=== PATIENT | female | born 1945 | race Caucasian/White ===

== ENCOUNTER 2018-09-19 23:36 | Inpatient (IN) | payer MEDICARE, MEDICAID ==
[2018-09-20 00:44] LABS: Troponin I 0.013 ng/mL (< 0.028)
[2018-09-20 01:31] VITALS: BMI 27.3
[2018-09-20] MEDS ORDERED: Ondansetron PF 4 MG/2 ML Vial IVP PRN ×2 (01:31→01:35)
[2018-09-20] MEDS ORDERED: Sodium Chloride 0.9% 1,000 ML IV SCH (01:31)
[2018-09-20] MEDS ORDERED: Ondansetron ODT 4 MG TAB SL PRN (01:31)
[2018-09-20] MEDS ORDERED: Dextrose 5% in Water 1,000 ML IV PRN (01:35)
[2018-09-20] MEDS ORDERED: Acetaminophen 325 MG TAB PO PRN (01:35)
[2018-09-20] MEDS ORDERED: Ondansetron ODT 4 MG TAB PO PRN (01:35)
[2018-09-20] MEDS ORDERED: Dextrose 50% Abboject 50 ML SYRINGE SLOW IVP PRN (01:35)
[2018-09-20] MEDS ORDERED: Diltiazem 125 MG in Sodium Chloride 0.9% 100 ML IVPB SCH (01:35)
[2018-09-20] MEDS ORDERED: HumaLOG 300 UNITS/3 ML VIAL SC PRN ×2 (01:35)
[2018-09-20] MEDS ORDERED: hydrALAZINE 20 MG/ML VIAL SLOW IVP PRN (01:35)
[2018-09-20 02:18] LABS: Thyroid Stimulating Hormone 4.3659 uIU/mL (0.35-4.94)
[2018-09-20 03:32] LABS: #Basophils 0.1 thou/uL (0.0-0.2); #Eosinphils 0.4 thou/uL (0.0-0.7); #Lymphocytes 3.6 thou/uL (1.20-3.40); #Monocytes 0.6 thou/uL (0.11-0.59); %Eosinophils 3.4 % (0.0-10.0); %Monocytes 5.3 % (0.0-10.0); %Neutrophils 56.4 % (42.0-75.0); Hemoglobin 12.1 g/dL (12.0-16.0); Mean Corpuscular HGB CONC 32.8 g/dL (32.0-36.0); Mean Corpuscular Hemoglobin 31.9 pg (27.0-31.0); Mean Corpuscular Volume 97.4 fL (78.0-98.0); Mean Platelet Volume 7.2 fL (7.4-10.4); Platelet Count 338 thou/uL (130-400); RBC Distribution Width 12.1 % (11.5-14.5); Red Blood Cell (RBC) Count 3.79 mill/uL (4.20-5.40); White Blood Cell (WBC) Count 10.6 thou/uL (4.8-10.8)
[2018-09-20 03:50] LABS: Anion Gap 17 mmol/L (10-20); BUN (Urea Nitrogen) 21 mg/dL (9.8-20.1); Calc. Creatinine Clearance 48 mL/min (70-130); Calcium 9.5 mg/dL (7.8-10.44); Carbon Dioxide 21 mmol/L (23-31); Chloride 107 mmol/L (98-107); Estimated GFR-MDRD 46; Glucose 217 mg/dL (83-110); Potassium 3.9 mmol/L (3.5-5.1); Sodium 141 mmol/L (136-145)
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
[2018-09-20 04:34] LABS: Free T4 (Free Thyroxine) 0.97 ng/dL (0.70-1.48)
[2018-09-20] MEDS ORDERED: Enoxaparin Sodium 80 MG/0.8 ML SYRINGE SC SCH (09:00)
[2018-09-20] MEDS: Famotidine 20 MG TAB PO SCH ×2 (09:18→20:50)
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
[2018-09-20 19:59] LABS: Platelet Count 392 thou/uL (130-400)
[2018-09-20] MEDS: Apixaban 5 MG TAB PO SCH (20:50)
[2018-09-20] MEDS: Amiodarone 200 MG TAB PO SCH (20:50)
[2018-09-20] MEDS: Diltiazem HCl SR 60 mg Capsule PO SCH (20:50)
[2018-09-21] MEDS: Levothyroxine Sodium 125 MCG TAB PO SCH (06:04)
[2018-09-21] MEDS: Apixaban 5 MG TAB PO SCH ×2 (08:49→20:54)
[2018-09-21] MEDS: Diltiazem HCl SR 60 mg Capsule PO SCH ×2 (08:49→20:54)
[2018-09-21] MEDS: Famotidine 20 MG TAB PO SCH ×2 (08:50→20:54)
[2018-09-21] MEDS: Amiodarone 200 MG TAB PO SCH ×2 (08:50→20:54)
[2018-09-21] MEDS: Carvedilol 3.125 MG TAB PO SCH ×2 (08:50→16:07)
[2018-09-21] MEDS: Lisinopril 5 MG TAB PO SCH (08:50)
[2018-09-21] MEDS ORDERED: Lisinopril 10 MG TAB PO SCH (09:00)
--- NOTE | 2018-09-21 14:50 | PRG ---
DATE OF SERVICE: 09/21/2018 SUBJECTIVE: The patient is seen and examined at the bedside. She complains about dizziness when she gets up and starts moving around. OBJECTIVE: VITAL SIGNS: Blood pressure is 117/61, pulse is 78, respiratory rate is 17, temperature is 97.7, and O2 saturation is 95% on room air. GENERAL: She is not in any distress during my visit. HEENT: On examination, her head is atraumatic and normocephalic. Eyes are PERRLA. Sclerae are nonicteric. Oral mucosa is moist. NECK: Supple. LUNGS: Clear. HEART: S1 and S2, irregularly irregular. No S3. No S4. ABDOMEN: Soft, nontender, slightly obese. EXTREMITIES: No clubbing, cyanosis, or edema. NEUROLOGIC: She is alert and oriented x4. There are no any sensory or motor deficits present. Cranial nerves are intact. LABORATORY DATA: Glycemia is ranging from 107 to 183. Echocardiogram showed LVEF of 40% to 45%, atrial fibrillation during study, mildly dilated left atrium, mild mitral regurgitation, aortic valve sclerosis but opens well, and mild tricuspid regurgitation. IMPRESSION: 1. Atrial fibrillation with rapid ventricular response, rate controlled at this point, the patient was on Cardizem drip. She is switched to amiodarone. She is started on Eliquis 5 mg twice a day. She is continued on her lisinopril and it is controlled. She is scheduled for outpatient DEBI and cardioversion on Sunday. 2. Dizziness, unclear etiology. We will do orthostatic vitals. 3. Diabetes mellitus, type 2. 4. Asthma, on p.r.n. DuKtbs. 5. Hypothyroidism. PLAN: As I mentioned above, she is going to continue on her amiodarone along with Eliquis and Coreg. We will continue sliding scale coverage with moderate protocol and Accu-Cheks before meals and at bedtime. We will continue her lisinopril and levothyroxine, and she should be able to go home tomorrow. Job ID: [id number]
[2018-09-22] MEDS: Levothyroxine Sodium 125 MCG TAB PO SCH (05:49)
[2018-09-22] MEDS: Carvedilol 3.125 MG TAB PO SCH ×2 (08:01→16:22)
[2018-09-22] MEDS: Famotidine 20 MG TAB PO SCH ×2 (09:22→20:48)
[2018-09-22] MEDS: Apixaban 5 MG TAB PO SCH ×2 (09:23→20:47)
[2018-09-22] MEDS: Lisinopril 5 MG TAB PO SCH (09:23)
[2018-09-22] MEDS: Amiodarone 200 MG TAB PO SCH ×2 (09:23→20:47)
--- NOTE | 2018-09-22 13:23 | PRG ---
DATE OF SERVICE: 09/22/2018 SUBJECTIVE: The patient is seen and examined at the bedside. She had quite significant amount of dizziness this morning and doctor of naturopathic medicine saw her and also she had a pause on her monitoring and some I believe SVT, nonsustained, short and he decided to keep additional day and stop her . OBJECTIVE: VITAL SIGNS: Blood pressure is 113/70, pulse is 62, temperature is 97.9, respiratory rate is 17, and O2 saturation is 97% on room air. HEENT: Head is atraumatic and normocephalic. Eyes are PERRLA. Sclerae are nonicteric. Oral mucosa is moist. NECK: Supple. LUNGS: Clear. HEART: S1 and S2, normal. No S3. No S4. ABDOMEN: Soft and nontender. EXTREMITIES: No clubbing, cyanosis, or edema. NEUROLOGIC: She is alert and oriented x4. There is no any sensory or motor deficits present. There is no nystagmus. LABORATORY DATA: Glycemia is ranging from 104 to 183. Echocardiogram showed LVEF estimated at 40% to 45%, and atrial fibrillation during study. Mildly dilated left atrium, mild mitral regurgitation, aortic valve sclerosis, but opening well, and mild tricuspid regurgitation. IMPRESSION: 1. Atrial fibrillation with RVR. The patient is back to normal sinus rhythm. She converted this morning. She is on amiodarone at this point, Cardizem was stopped. She is started on Eliquis 5 mg twice a day and her rate is controlled. Most likely, she will need followup appointment with doctor of naturopathic medicine next Sunday because she converted to sinus, but we are going to keep her additional day since she had some dizziness and orthostatic vitals did not show any abnormalities. 2. Diabetes mellitus type 2. 3. Asthma, on p.r.n. DuoNeb. 4. Hypothyroidism. PLAN: Plan is to continue her current regimen, hold the discharge, and start meclizine. She probably will go home tomorrow morning. Job ID: [id number]
[2018-09-22] MEDS ORDERED: Atorvastatin Calcium 20 MG TAB PO SCH (21:00)
[2018-09-23 05:28] LABS: Platelet Count 372 thou/uL (130-400)
[2018-09-23] MEDS: Levothyroxine Sodium 125 MCG TAB PO SCH (05:59)
[2018-09-23] MEDS: Carvedilol 3.125 MG TAB PO SCH (07:08)
[2018-09-23] MEDS: Lisinopril 5 MG TAB PO SCH (08:45)
[2018-09-23] MEDS: Apixaban 5 MG TAB PO SCH (08:45)
[2018-09-23] MEDS: Amiodarone 200 MG TAB PO SCH (08:45)
[2018-09-23] MEDS: Famotidine 20 MG TAB PO SCH (08:45)
[2018-09-23 12:40] VITALS: BP 127/74; TEMP 97.9
== END 2018-09-23 15:45 | disposition home or self-care (01) | DRG 310 ==
LOC: ERS 23:36 → 2NO 09-20 00:05
PROVIDERS: ADMIT Internal Medicine; ATTEND Internal Medicine
DX: I48.91 Unspecified atrial fibrillation (principal); I10 Essential (primary) hypertension; E11.9 Type 2 diabetes mellitus without complications; J45.909 Unspecified asthma, uncomplicated; E03.9 Hypothyroidism, unspecified; Z96.652 Presence of left artificial knee joint; Z93.0 Tracheostomy status; Z88.5 Allergy status to narcotic agent; Z88.2 Allergy status to sulfonamides; Z91.041 Radiographic dye allergy status
CPT/HCPCS: 36415; 36416; 80048; 82565; 84439; 84443; 84484; 85014; 85018; 85025; 85049; 93005; 93306; 96365; J1650; J2405; J7050

== ENCOUNTER 2020-06-10 06:28 | Inpatient (IN) | payer MEDICARE, MEDICAID ==
[2020-06-10 07:04] LABS: #Basophils 0.1 thou/uL (0.0-0.2); #Eosinphils 0.3 thou/uL (0.0-0.7); #Lymphocytes 2.1 thou/uL (1.20-3.40); #Monocytes 0.4 thou/uL (0.11-0.59); #Neutrophils 5.4 thou/uL (1.40-6.50); %Basophils 1.2 % (0.0-1.0); %Eosinophils 3.8 % (0.0-10.0); %Lymphocytes 24.7 % (21.0-51.0); %Monocytes 5.2 % (0.0-10.0); %Neutrophils 65.2 % (42.0-75.0); Hemoglobin 13.9 g/dL (12.0-16.0); Mean Corpuscular HGB CONC 33.7 g/dL (32.0-36.0); Mean Corpuscular Hemoglobin 32.2 pg (27.0-31.0); Mean Corpuscular Volume 95.6 fL (78.0-98.0); Mean Platelet Volume 7.4 fL (7.4-10.4); Platelet Count 279 thou/uL (130-400); RBC Distribution Width 12.3 % (11.5-14.5); Red Blood Cell (RBC) Count 4.32 mill/uL (4.20-5.40); White Blood Cell (WBC) Count 8.3 thou/uL (4.8-10.8)
[2020-06-10] MEDS ORDERED: Albuterol 200 PUFF (6.7GM INHALER) ONE (07:22)
[2020-06-10 07:23] LABS: ALT (SGPT) 15 U/L (8-55); AST (SGOT) 21 U/L (5-34); Albumin 4.4 g/dL (3.4-4.8); Alkaline Phosphatase 65 U/L (40-110); Anion Gap 17 mmol/L (10-20); BUN (Urea Nitrogen) 19 mg/dL (9.8-20.1); Bilirubin, Total 0.4 mg/dL (0.2-1.2); Calc. Creatinine Clearance 0 mL/min (70-130); Calcium 10.2 mg/dL (7.8-10.44); Carbon Dioxide 24 mmol/L (23-31); Chloride 106 mmol/L (98-107); Globulin 3.1 g/dL (2.4-3.5); Glucose 155 mg/dL (83-110); Potassium 3.9 mmol/L (3.5-5.1); Protein, Total 7.5 g/dL (6.0-8.3); Sodium 143 mmol/L (136-145)
[2020-06-10] MEDS ORDERED: Nitroglycerin 2% Ointment 1 INCH/1 GM Packet ONE (07:38)
[2020-06-10] MEDS ORDERED: Furosemide 40 MG/4 ML VIAL ONE (07:39)
[2020-06-10] MEDS ORDERED: Metoprolol Tartrate 5 MG/5 ML VIAL ONE (07:39)
[2020-06-10 07:44] LABS: CKMB 2.2 ng/mL (0-6.6)
--- NOTE | 2020-06-10 08:10 | RAD ---
Chest AP view INDICATION: Chest pain COMPARISON: Prior exam dated 06/10/2020 2:34 AM FINDINGS: Lungs: The lungs are clear Cardiac silhouette: The cardiomediastinal silhouette appears within normal limits. Pulmonary vasculature: Normal Pleural spaces: No pleural effusion or pneumothorax is demonstrated. Upper abdomen: No abnormality seen. Osseous structures: No acute osseous abnormality. Additional findings: None. IMPRESSION: No acute cardiopulmonary abnormality.
--- NOTE | 2020-06-10 08:29 | PDOC.HHP ---
Hospitalist HPI - History of Present Illness Shortness of breath History of Present Illness: Ms. Ball is a 74-year-old female with a past medical history of type 2 diabetes mellitus, hypertension, asthma, GERD, hypothyroidism, CKD, CHF with ejection fraction of 40 to 45%, atrial fibrillation on Eliquis (but noncompliant) who presented to outside hospital for an acute asthma attack. Patient reports that around 6 PM yesterday she noticed that her asthma was acting up and she gave herself an albuterol nebulizer treatment. This however only minimally improved her symptoms and she felt some chest tightness and pressure which prompted her to present to the emergency room. Patient reports that by the time she arrived to the emergency room her breathing had much improved and she no longer felt this chest tightness or pressure. Patient reports that she has a history of significant asthma in the past causing ICU admissions and intubation. She also reports noncompliance with many of her medications and once they have run out she has not refilled them. She is currently not taking any of her thyroid medicine any of her diabetes medicines or any of her medications for A. fib including her formally prescribed Cardizem or Eliquis. She denies any changes in vision, numbness, weakness. She denies any known Covid contacts. At outside hospital patient was found to be in A. fib with RVR with a rate in the 130s. She received Cardizem and is now in good rate control. She is not in any respiratory distress at outside hospital. In the emergency room here initial vital signs 160/102, 96, 18, 97.8, 96% on room air. EKG showed atrial fibrillation with controlled rate. Initial troponin 0 0.043, BNP 209.6. BUN/CR 19/1.12. H/H 13.9/41.3. WBC 8.3 sodium 143, potassium 3.9 glucose 155. Nacho dubon received albuterol nebulizer as well as nitro paste. Patient admitted to hospitalist service for further monitoring and evaluation. Hospitalist ROS - Review of Systems Constitutional: denies: fever, chills, sweats, weakness, malaise, other ENT: denies: ear pain, ear discharge, nose pain, nose discharge, nose congestion, mouth pain, mouth swelling, throat pain, throat swelling, other Respiratory: reports: shortness of breath, wheezing. denies: cough, dry, hemoptysis, SOB with excertion, pleuritic pain, sputum, other Cardiovascular: reports: chest pain. denies: palpitations, orthopnea, paroxysmal noc. dyspnea, edema, light headedness, other Gastrointestinal: denies: nausea, vomiting, abdominal pain, diarrhea, constipa tion, melena, hematochezia, other Genitourinary: denies: dysuria, frequency, incontinence, hematuria, retention, other Musculoskeletal: denies: neck pain, shoulder pain, arm pain, back pain, hand pain, leg pain, foot pain, other Skin: denies: rash, lesions, darwin, bruising, other Neurological: denies: weakness, numbness, incoordination, change in speech, confusion, seizures, other - Medication Medications: Home medications include Albuterol inhaler Prednisone Singulair Amlodipine Medications previously prescribed, but patient reports noncompliance with include Humalog Levothyroxine Lisinopril Metformin Eliquis Patient reports allergy to codeine, iodine, sulfa antibiotics. Hospitalist History - Past Medical History Other Medical History: Past medical history includes Atrial fibrillation on Eliquis, but noncompliant Type 2 diabetes mellitus Hypertension Asthma GERD Hypothyroidism CKD with baseline creatinine 1.2 CHF with ejection fraction of 40 to 45% on echocardiogram in 2019 - Past Surgical History Other Surgical History: Past surgical history includes Left knee replacement Pain in right heel - Family History Other Family History: Patient denies family history of heart disease - Social History Smoking Status: Never smoker Alcohol: reports: None Drugs: reports: none Living Situation: With Family Activity level: independent ambulation Other Social History: Patient cares for her elderly 94-year-old mother with dementia by herself, and reports great stress and anxiety around this. - Exam General Appearance: NAD, awake alert Eye: PERRL, anicteric sclera ENT: normocephalic atraumatic, no oropharyngeal lesions, moist mucosa Neck: supple, symmetric, no JVD, no thyromegaly, no lymphadenopathy, no carotid bruit Heart: normal peripheral pulses, irregular Heart - other findings: Irregularly irregular Respiratory: no rales, no ronchi, normal chest expansion, no tachypnea Respiratory - other findings: Faint wheezes Gastrointestinal: soft, non-tender, non-distended, normal bowel sounds, no palpable masses, no hepatomegaly, no splenomegaly, no bruit Extremities: no cyanosis, no clubbing, no edema Skin: normal turgor, no lesions, no rashes Neurological: cranial nerve grossly intact, normal sensation to touch, no weakness, no focal deficits, no new deficit Musculoskeletal: normal tone, normal strength, no muscle wasting Psychiatric: normal affect, normal behavior, A&O x 3 Hospitalist Results - Labs Result Diagrams: 06/12/20 04:13 06/12/20 04:13 Lab results: WBC 8.3 thou/uL (4.8-10.8) 06/10/20 06:52 Hgb 13.9 g/dL (12.0-16.0) 06/10/20 06:52 Hct 41.3 % (36.0-47.0) 06/10/20 06:52 MCV 95.6 fL (78.0-98.0) 06/10/20 06:52 Plt Count 279 thou/uL (130-400) 06/10/20 06:52 Neutrophils % 65.2 % (42.0-75.0) 06/10/20 06:52 Sodium 143 mmol/L (136-145) 06/10/20 06:52 Potassium 3.9 mmol/L (3.5-5.1) 06/10/20 06:52 Chloride 106 mmol/L (98-107) 06/10/20 06:52 Carbon Dioxide 24 mmol/L (23-31) 06/10/20 06:52 BUN 19 mg/dL (9.8-20.1) 06/10/20 06:52 Creatinine 1.12 mg/dL (0.6-1.1) H 06/10/20 06:52 Glucose 155 mg/dL (83-110) H 06/10/20 06:52 Calcium 10.2 mg/dL (7.8-10.44) 06/10/20 06:52 Total Bilirubin 0.4 mg/dL (0.2-1.2) 06/10/20 06:52 AST 21 U/L (5-34) 06/10/20 06:52 ALT 15 U/L (8-55) 06/10/20 06:52 Alkaline Phosphatase 65 U/L (40-110) 06/10/20 06:52 CK-MB (CK-2) 2.2 ng/mL (0-6.6) 06/10/20 06:52 Troponin I 0.043 ng/mL (< 0.028) H 06/10/20 06:52 B-Natriuretic Peptide 209.6 pg/mL (0-100) H 06/10/20 06:52 Serum Total Protein 7.5 g/dL (6.0-8.3) 06/10/20 06:52 Albumin 4.4 g/dL (3.4-4.8) 06/10/20 06:52 Hospitalist H&P A/P - Plan Plan: 74-year-old female with past medical history of asthma, atrial fibrillation, hypothyroidism, hypertension, type 2 diabetes mellitus presents with mild asthma exacerbation found to be in atrial fibrillation with RVR. Asthma exacerbation Patient initially presented to outside hospital with mild asthma exacerbation which was not relieved by home DuoNeb inhalers. Patient endorsed persistent chest tightness which improved after additional albuterol treatments. Patient currently maintaining O2 saturation 95% on room air and is in no respiratory distress. Patient reports that in the past she has had significant asthma exacerbations requiring ICU level care and intubation. On exam patient with faint wheezes. Will start patient on steroids and continue albuterol inhalers and DuoNeb inhalers as needed. Plan P.o. steroids Albuterol nebs Closely monitor respiratory status Atrial fibrillation with rapid ventricular rate Patient has a history of A. fib with RVR and was previously seen by Dr. Stevenson in September 2018 where she was started on diltiazem and Eliquis. Patient reports noncompliance with these and has stopped taking them many months ago since she never followed up with cardiology after this. At outside hospital patient was found to be in A. fib with RVR in the 130s. Patient received IV Cardizem with improvement in her rate. She is now rate controlled in the 90s, but remains in A. fib. Will restart patient's home Eliquis and Coreg. Plan -Telemetry monitoring -Restart home Eliquis Restart home Coreg Cardiology consult, recommendations appreciated Elevated troponin Troponin indeterminate at 0.043. Likely secondary to atrial fibrillation. We will continue to trend after for chest pain or ST changes. Plan Trend troponin Telemetry monitoring Monitor and replete electrolytes as needed Hypothyroidism Patient with history of hypothyroidism, noncompliant with thyroid medicine. On exam patient has findings of hypothyroidism including coarse hair and dry skin. Will check TSH and restart patient's levothyroxine as needed. Plan TSH Restart home levothyroxine Hypertension We will continue patient's home amlodipine once dosages confirmed. Type 2 diabetes mellitus History of type 2 diabetes mellitus patient was formally on Metformin and Humalog, however she reports that she no longer has diabetes. Given patient's noncompliance with other medical conditions suspect she likely was lost to follow-up. Will check hemoglobin A1c and place on a [facility] Accu-Cheks for now. Plan Hemoglobin A1c [facility] Accu-Cheks DVT prophylaxison Janes Full code patient has named her 2 children Wes and Sarai as her medical decisions makers Case discussed with Dr. Pineda who is in agreement with above.
[2020-06-10] MEDS ORDERED: Bisacodyl 5 MG TAB PO PRN (08:49)
[2020-06-10] MEDS ORDERED: Acetaminophen 325 MG TAB PO PRN (08:49)
[2020-06-10] MEDS ORDERED: Senokot S 8.6-50 MG TAB PO PRN (08:49)
[2020-06-10] MEDS ORDERED: Albuterol Sulfate 2.5 mg/3 ml Neb NEB PRN (08:53)
[2020-06-10] MEDS ORDERED: Dextrose 5% in Water 1,000 ML IV PRN (08:54)
[2020-06-10] MEDS ORDERED: Dextrose 50% Abboject 50 ML SYRINGE SLOW IVP PRN (08:54)
[2020-06-10] MEDS ORDERED: predniSONE 20 MG TAB PO SCH (09:00)
[2020-06-10] MEDS ORDERED: Enoxaparin Sodium 80 MG/0.8 ML SYRINGE SC SCH (09:00)
[2020-06-10 09:43] LABS: INR-International Normal Ratio 0.9; PTT 24.2 sec (22.9-36.1); Prothrombin Time 12.6 sec (12.0-14.7)
[2020-06-10 10:02] LABS: Troponin I 0.041 ng/mL (< 0.028)
[2020-06-10] MEDS ORDERED: Levothyroxine Sodium 125 MCG TAB PO SCH (11:30)
[2020-06-10 12:21] VITALS: BMI 26.5
[2020-06-10 12:55] LABS: SARS-CoV-2 MS2 Positive; SARS-CoV-2 N Gene Negative; SARS-CoV-2 S Gene Negative; SARS-CoV-2 by NAA Not Detected (NotDetected); SARS-CoV-2 orf1ab Negative
[2020-06-10 13:13] LABS: Troponin I 0.037 ng/mL (< 0.028)
[2020-06-10] MEDS: Amlodipine 5 MG TAB PO SCH (15:33)
[2020-06-10] MEDS ORDERED: Furosemide 40 MG/4 ML VIAL SLOW IVP SCH (16:15)
[2020-06-10] MEDS ORDERED: Potassium Chloride 20 MEQ TAB PO SCH (16:15)
[2020-06-10] MEDS: Albuterol Sulfate 2.5 mg/3 ml Neb NEB PRN (17:02)
[2020-06-10] MEDS: Dronedarone HCl 400 MG TAB PO SCH (17:59)
[2020-06-10] MEDS: Carvedilol 3.125 MG TAB PO SCH (17:59)
[2020-06-10] MEDS: Apixaban 5 MG TAB PO SCH (20:45)
[2020-06-10] MEDS ORDERED: Carvedilol 3.125 MG TAB PO SCH (20:45)
--- NOTE | 2020-06-10 22:12 | CON ---
DATE OF CONSULTATION: 06/10/2020 REASON FOR CONSULTATION: Atrial fibrillation with a rapid rate. PRIMARY RD LAB TECHNICIAN: Dr. Adriel Black. HISTORY OF PRESENT ILLNESS: Ms. Ball is a 74-year-old woman. She is admitted to the hospital with atrial fibrillation with some degree of left ventricular dysfunction in September of 2018. She did convert to sinus rhythm. She was seen in the office and she was in sinus rhythm. She also had stress testing which showed normal left ventricular function and no evidence of any ischemia. She was on amiodarone, but stopped a few months ago. The patient, however, has been having a lot of problem with her lungs with difficulty breathing and wheezing. She requires nebulized therapy multiple times a day. Despite that, she continues to wheeze. She did have a feeling of tightness in her chest and her heart rate was fast. MEDICATIONS: At home, the patient stopped taking all the cardiac medicines. It is unclear what actual medicine she was taking, but she stopped taking all the heart medicines and stopped the amiodarone about 3 months prior to this and stopped the Eliquis. REVIEW OF SYSTEMS: CONSTITUTIONAL: No significant weight gain or loss. VISION: No changes. HEARING: No changes. PULMONARY: Positive for wheezing. CARDIAC: No chest pain or pressure other than when she had her heart rate was fast. SOCIAL HISTORY: She does not smoke. ALLERGIES: TO IODINE. PHYSICAL EXAMINATION: GENERAL: This is a pleasant 74-year-old woman, in no distress. VITAL SIGNS: Blood pressure is 144/100, pulse 90 and it is irregular. LUNGS: Clear of any rales, but she is wheezing and [id number] expiratory. CARDIAC: Irregularly irregular. ABDOMEN: Soft, nontender. EXTREMITIES: There is no edema. LABORATORY DATA: Troponins are indeterminate at 0.041. BNP was high at 209.6. EKG, atrial fibrillation with a rapid rate, some ST depression in V4 and V6. ASSESSMENT: 1. Atrial fibrillation with rapid ventricular response. 2. Chronic obstructive pulmonary disease, reactive airway disease and wheezing, even off amiodarone for 3 months. 3. Some element of diastolic congestive heart failure with increased BNP. 4. Normal stress test done in our office in the spring. PLAN: 1. Continue anticoagulation. 2. I would recommend transesophageal echo and cardioversion to try to get her out of the fibrillation. 3. At this point, amiodarone does not seem to be an ideal medicine for her because it may lead to lung troubles. Also I am reluctant to use flecainide with what appears to be diastolic heart failure. We will use Multaq. We have some samples. Hopefully, she is able to afford the medicine or least qualify for a plan, the medicine tends to be very expensive, but it seems to be the best choice for her at this point. Discussed risk of transesophageal echo and cardioversion, including risk of stroke and low heart rate requiring pacemaker insertion. Also, we will discuss risk of injury to the teeth and esophagus with this transesophageal echo. Job ID: [id number]
[2020-06-11] MEDS: Albuterol Sulfate 2.5 mg/3 ml Neb NEB PRN ×2 (00:43→07:42)
[2020-06-11 05:35] LABS: #Basophils 0.1 thou/uL (0.0-0.2); #Lymphocytes 2.2 thou/uL (1.20-3.40); #Monocytes 0.3 thou/uL (0.11-0.59); #Neutrophils 7.4 thou/uL (1.40-6.50); %Basophils 0.6 % (0.0-1.0); %Eosinophils 0.1 % (0.0-10.0); %Lymphocytes 22.1 % (21.0-51.0); %Neutrophils 74.2 % (42.0-75.0); Mean Corpuscular HGB CONC 33.9 g/dL (32.0-36.0); Mean Corpuscular Hemoglobin 32.3 pg (27.0-31.0); Mean Corpuscular Volume 95.3 fL (78.0-98.0); Mean Platelet Volume 7.8 fL (7.4-10.4); Platelet Count 316 thou/uL (130-400); RBC Distribution Width 12.4 % (11.5-14.5); Red Blood Cell (RBC) Count 4.34 mill/uL (4.20-5.40)
[2020-06-11 05:59] LABS: Anion Gap 16 mmol/L (10-20); BUN (Urea Nitrogen) 27 mg/dL (9.8-20.1); Calc. Creatinine Clearance 30 mL/min (70-130); Calcium 10.1 mg/dL (7.8-10.44); Carbon Dioxide 24 mmol/L (23-31); Chloride 105 mmol/L (98-107); Glucose 164 mg/dL (83-110); Potassium 4.3 mmol/L (3.5-5.1); Sodium 141 mmol/L (136-145)
[2020-06-11] MEDS: Levothyroxine Sodium 125 MCG TAB PO SCH (07:27)
[2020-06-11] MEDS: Carvedilol 3.125 MG TAB PO SCH ×2 (09:47→16:57)
[2020-06-11] MEDS: Dronedarone HCl 400 MG TAB PO SCH ×2 (09:47→16:57)
[2020-06-11] MEDS: Amlodipine 5 MG TAB PO SCH (09:47)
[2020-06-11] MEDS: Apixaban 5 MG TAB PO SCH ×2 (09:47→20:07)
[2020-06-11] MEDS ORDERED: PROPOFOL 20 ML ONE (11:00)
[2020-06-11] MEDS ORDERED: Ketamine 50 MG/ML (10ML VIAL) ONE (11:00)
[2020-06-11] MEDS ORDERED: Amlodipine 5 MG TAB PO SCH (14:00)
--- NOTE | 2020-06-11 16:19 | OP ---
DATE OF PROCEDURE: 06/11/2020 PROCEDURE PERFORMED: Transesophageal echocardiogram. INDICATION: A 74-year-old woman with cardiomyopathy and mitral regurgitation. DESCRIPTION OF PROCEDURE: The patient was taken to the PACU. The patient was sedated by Anesthesiology. A transesophageal probe was placed into the distal esophagus and stomach. Echocardiographic images were obtained. The transesophageal probe was removed. FINDINGS: 1. Severe decrease in left ventricular systolic function. 2. Moderate left atrial enlargement. 3. The left ventricle is dilated. 4. Normal mitral and aortic valves. 5. Mild to moderate mitral regurgitation. 6. Mild tricuspid regurgitation. 7. Spontaneous contrast is noted in the left atrium and left atrial appendage. 8. No formed thrombus in the left atrium or left atrial appendage. 9. Atherosclerotic debris in the descending aorta. IMPRESSION: Severe decrease in left ventricular systolic function with mild mitral regurgitation and no formed thrombus in the left atrium or left atrial appendage. Job ID: [id number] MTDD
--- NOTE | 2020-06-11 16:34 | PRG ---
DATE OF SERVICE: 06/11/2020 SUBJECTIVE: Ms. Ball is feeling much better. She had cardioversion today. She said "I feel I have a new heart." She has normal rhythm, now heart rate is 62. OBJECTIVE: VITAL SIGNS: Her blood pressure earlier 179/101, now 137/81. Pulse in the low 60s. LUNGS: Clear. There is no wheezing today. CARDIAC: Normal S1, normal S2. ABDOMEN: Soft, nontender. EXTREMITIES: No edema. LABORATORY DATA: Creatinine did go up to 1.87 with a diuretic. ASSESSMENT: 1. Diastolic heart failure, improved, probably related to diuretic, as well as normal rhythm. 2. Negative transesophageal echo for thrombus, but Dr. Luis did note the ejection fraction appeared diminished, but she was in fibrillation at that time. I think this is probably related to prolonged episode of fibrillation with tachycardia. PLAN: 1. She is on Multaq 400 mg twice a day. 2. Carvedilol 3.125 mg twice a day. 3. Eliquis 5 mg twice a day. 4. Norvasc 2.5 mg a day. 5. No BASILIA inhibitor at this time due to renal insufficiency. 6. The patient is to be released home tomorrow, to be followed up in the office. If she has recurrent fibrillation, I would be reluctant to give her amiodarone long-term as she has some COPD with reactive airway disease. Also would be very reluctant to give her flecainide with diastolic heart failure. I think if she had recurrent fibrillation, we would really consider an ablation as a possibility. ADDENDUM: Okay with me for the patient to be released home tomorrow morning. Job ID: [id number]
[2020-06-11] MEDS ORDERED: Atorvastatin Calcium 20 MG TAB PO SCH (21:00)
[2020-06-11] MEDS ORDERED: Lisinopril 10 MG TAB PO SCH (21:00)
[2020-06-12] MEDS ORDERED: diphenhydrAMINE 25 MG CAP PO SCH (02:30)
[2020-06-12] MEDS: Albuterol Sulfate 2.5 mg/3 ml Neb NEB PRN (02:37)
[2020-06-12] MEDS: Levothyroxine Sodium 125 MCG TAB PO SCH (02:48)
[2020-06-12 04:41] LABS: #Basophils 0.1 thou/uL (0.0-0.2); #Eosinphils 0.7 thou/uL (0.0-0.7); #Lymphocytes 4.3 thou/uL (1.20-3.40); #Monocytes 0.7 thou/uL (0.11-0.59); %Basophils 1.1 % (0.0-1.0); %Monocytes 5.8 % (0.0-10.0); %Neutrophils 51.1 % (42.0-75.0); Hemoglobin 12.3 g/dL (12.0-16.0); Mean Corpuscular HGB CONC 32.7 g/dL (32.0-36.0); Mean Corpuscular Volume 97.9 fL (78.0-98.0); Mean Platelet Volume 7.9 fL (7.4-10.4); Platelet Count 274 thou/uL (130-400); RBC Distribution Width 12.3 % (11.5-14.5); Red Blood Cell (RBC) Count 3.85 mill/uL (4.20-5.40); White Blood Cell (WBC) Count 11.8 thou/uL (4.8-10.8)
[2020-06-12 05:00] LABS: Anion Gap 17 mmol/L (10-20); BUN (Urea Nitrogen) 37 mg/dL (9.8-20.1); Calc. Creatinine Clearance 28 mL/min (70-130); Calcium 9.1 mg/dL (7.8-10.44); Carbon Dioxide 23 mmol/L (23-31); Chloride 104 mmol/L (98-107); Glucose 141 mg/dL (83-110); Potassium 3.4 mmol/L (3.5-5.1); Sodium 141 mmol/L (136-145)
--- NOTE | 2020-06-12 08:56 | PDOC.HOSPP ---
- Subjective Encounter Date: 06/11/20 Encounter Time: 09:00 Subjective: pt up in bed no complains - Objective Vital Signs & Weight: Vital Signs (12 hours) Temp Pulse Resp BP Pulse Ox 06/12/20 07:50 97.7 F 56 L 20 124/67 97 06/12/20 04:00 96.9 F L 55 L 14 116/68 95 06/12/20 02:37 95 06/12/20 00:42 98.1 F 62 16 140/83 94 L 06/11/20 21:00 97.5 F L 62 16 130/79 95 Weight Weight 159 lb 9.6 oz I&O: 06/11/20 06/12/20 06/13/20 06:59 06:59 06:59 Intake Total 525 980 Balance 525 980 Result Diagrams: 06/12/20 04:13 06/12/20 04:13 Additional Labs: Accuchecks 06/12/20 06/11/20 06/11/20 05:33 21:39 17:08 POC Glucose 132 H 131 H 123 H 06/11/20 10:30 POC Glucose 138 H Hospitalist ROS - Review of Systems Cardiovascular: denies: chest pain, palpitations, orthopnea, paroxysmal noc. dyspnea, edema, light headedness, other Gastrointestinal: denies: nausea, vomiting, abdominal pain, diarrhea, constipation, melena, hematochezia, other Genitourinary: denies: dysuria, frequency, incontinence, hematuria, retention, other - Medication Medications: Active Medications Generic Name Dose Route Start Last Admin Trade Name Freq PRN Reason Stop Dose Admin Albuterol Sulfate 2.5 mg 06/10/20 09:00 06/12/20 02:37 Albuterol Sulfate 2.5 Mg/3 Ml Neb NEB 2.5 mg Q2H PRN Administration Wheezing Apixaban 5 mg 06/10/20 21:00 06/11/20 20:07 Apixaban 5 Mg Tab PO 5 mg BID FERNANDO Administration Atorvastatin Calcium 20 mg 06/11/20 21:00 06/11/20 20:08 Atorvastatin Calcium 20 Mg Tab PO 20 mg HS FERNANDO Administration Carvedilol 3.125 mg 06/10/20 17:00 06/11/20 16:57 Carvedilol 3.125 Mg Tab PO 3.125 mg BID-WM FERNANDO Administration Dronedarone 400 mg 06/10/20 17:00 06/11/20 16:57 Dronedarone Hcl 400 Mg Tab PO 400 mg BID-WM FERNANDO Administration Levothyroxine Sodium 125 mcg 06/11/20 06:00 06/12/20 02:48 Levothyroxine Sodium 125 Mcg Tab PO 125 mcg 0600 FERNANDO Administration - Exam Neck: negative: supple, symmetric, no JVD, no thyromegaly, no lymphadenopathy, no carotid bruit, JVD Heart: irregular Respiratory: negative: CTAB, no wheezes, no rales, no ronchi, normal chest expansion, no tachypnea, normal percussion, rales, rhonchi, tachypneic, wheezes Gastrointestinal: negative: soft, non-tender, non-distended, normal bowel sounds, no palpable masses, no hepatomegaly, no splenomegaly, no bruit, no guarding, no rigidity, tender to palpation, distended, diminished bowl sounds, voluntary guarding Hosp A/P (1) SOB (shortness of breath) Code(s): R06.02 - SHORTNESS OF BREATH Status: Acute (2) Afib Code(s): I48.91 - UNSPECIFIED ATRIAL FIBRILLATION Status: Acute (3) Hypothyroidism Code(s): E03.9 - HYPOTHYROIDISM, UNSPECIFIED Status: Acute (4) CAMILA (acute kidney injury) Code(s): N17.9 - ACUTE KIDNEY FAILURE, UNSPECIFIED Status: Acute (5) Asthma Code(s): J45.909 - UNSPECIFIED ASTHMA, UNCOMPLICATED Status: Acute - Plan plan if for cardioversion by cardioloy. She has not filled her rx for several months. According to her inhaler is empty for a while. AC started. she may need a steroid inhaler on discharge.
[2020-06-12] MEDS ORDERED: Amlodipine 5 MG TAB PO SCH (09:00)
[2020-06-12] MEDS: Dronedarone HCl 400 MG TAB PO SCH (09:20)
[2020-06-12] MEDS: Carvedilol 3.125 MG TAB PO SCH (09:20)
[2020-06-12] MEDS: Apixaban 5 MG TAB PO SCH (09:21)
--- NOTE | 2020-06-12 09:51 | ULT ---
RENAL ULTRASOUND: HISTORY: Acute kidney insufficiency. Chronic kidney disease. FINDINGS: Both kidneys measure 10 cm length. No hydronephrosis. Cortical thickness and cortical echogenicity is normally preserved. The bladder is mostly contracted and not well evaluated but appears unremarkable as visualized. IMPRESSION: Unremarkable renal ultrasound. POS: AGW
--- NOTE | 2020-06-12 10:39 | PDOC.HOSPP ---
- Subjective Encounter Date: 06/12/20 (f/u a fib) Encounter Time: 10:37 Subjective: Pt today denies any complaints. She states last night she required 2 breathing tx for chest tightness which resolved. She reports using albuterol at home - inhaler and neb. - Objective Vital Signs & Weight: Vital Signs (12 hours) Temp Pulse Resp BP Pulse Ox 06/12/20 09:20 56 L 06/12/20 07:50 97.7 F 56 L 20 124/67 97 06/12/20 04:00 96.9 F L 55 L 14 116/68 95 06/12/20 02:37 95 06/12/20 00:42 98.1 F 62 16 140/83 94 L Weight Weight 159 lb 9.6 oz I&O: 06/11/20 06/12/20 06/13/20 06:59 06:59 06:59 Intake Total 525 980 300 Balance 525 980 300 Result Diagrams: 06/12/20 04:13 06/12/20 04:13 Additional Labs: Accuchecks 06/12/20 06/11/20 06/11/20 05:33 21:39 17:08 POC Glucose 132 H 131 H 123 H 06/11/20 10:30 POC Glucose 138 H EKG Reviewed by me: Yes (tele - sinus 70's with pvc's) Hospitalist ROS - Medication Medications: Active Medications Generic Name Dose Route Start Last Admin Trade Name Freq PRN Reason Stop Dose Admin Albuterol Sulfate 2.5 mg 06/10/20 09:00 06/12/20 02:37 Albuterol Sulfate 2.5 Mg/3 Ml Neb NEB 2.5 mg Q2H PRN Administration Wheezing Amlodipine Besylate 2.5 mg 06/12/20 09:00 06/12/20 09:20 Amlodipine 5 Mg Tab PO 2.5 mg DAILY FERNANDO Administration Apixaban 5 mg 06/10/20 21:00 06/12/20 09:21 Apixaban 5 Mg Tab PO 5 mg BID FERNANDO Administration Atorvastatin Calcium 20 mg 06/11/20 21:00 06/11/20 20:08 Atorvastatin Calcium 20 Mg Tab PO 20 mg HS FERNANDO Administration Carvedilol 3.125 mg 06/10/20 17:00 06/12/20 09:20 Carvedilol 3.125 Mg Tab PO 3.125 mg BID-WM FERNANDO Administration Dronedarone 400 mg 06/10/20 17:00 06/12/20 09:20 Dronedarone Hcl 400 Mg Tab PO 400 mg BID-WM FERNANDO Administration Levothyroxine Sodium 125 mcg 06/11/20 06:00 06/12/20 02:48 Levothyroxine Sodium 125 Mcg Tab PO 125 mcg 0600 FERNANDO Administration - Exam General Appearance: NAD Heart: RRR, no murmur Respiratory: CTAB, no wheezes, no rales, no ronchi Gastrointestinal: soft, non-tender, non-distended, normal bowel sounds Extremities: no cyanosis, no clubbing, no edema Psychiatric: normal affect Hosp A/P (1) Afib Code(s): I48.91 - UNSPECIFIED ATRIAL FIBRILLATION Status: Resolved Qualifiers: Atrial fibrillation type: paroxysmal Qualified Code(s): I48.0 - Paroxysmal atrial fibrillation (2) Chronic kidney disease Code(s): N18.9 - CHRONIC KIDNEY DISEASE, UNSPECIFIED Status: Chronic Qualifiers: Chronic kidney disease stage: stage 3 (moderate) (3) Asthma Code(s): J45.909 - UNSPECIFIED ASTHMA, UNCOMPLICATED Status: Chronic Qualifiers: Asthma severity: unspecified severity Asthma persistence: unspecified (4) Hypothyroidism Code(s): E03.9 - HYPOTHYROIDISM, UNSPECIFIED Status: Chronic Qualifiers: Hypothyroidism type: unspecified Qualified Code(s): E03.9 - Hypothyroidism, unspecified - Plan Atrial fibrillation - s/p cardioversion - echo ordered for today Acute on chronic kidney disease - Consult Nephrology - renal ultrasound normal Hx of heart failure - echo in 2019 showed EF 40-45% - continue current meds, no signs of volume overload Asthma - prn breathing tx Hypothyroid - continue thyroid hormone replacement dvt prophy - full anticoagulation with eliquis gi prophy - not indicated code status full Will await recommendations from Nephrology to determine when it's safer to d/c pt to home reviewed plan of care with patient, no questions or further needs at end of eval.
--- NOTE | 2020-06-12 11:18 | CON ---
DATE OF CONSULTATION: 06/12/2020 SUBJECTIVE: Ms. Ball is a 74-year-old white female, who was admitted for shortness of breath. She was found to be in CHF. In addition, she was noted to have a decreased ejection fraction of 40% to 45%. This patient also has history of atrial fibrillation, has not been taking her Eliquis. The patient states that this morning, she is feeling a little better. She has also been diuresed. We are now being consulted for the acute kidney injury. Her creatinine has gone up from 1.12 to 1.8 and currently is 1.9. Lisinopril has been discontinued. REVIEW OF SYSTEMS: No chest pain. Positive for shortness of breath. No syncopal episode. No nausea. No vomiting. No diarrhea. No constipation. No productive cough. No chest pain. No sore throat. No diarrhea. No dysuria. No abdominal pain. MEDICATIONS: 1. Acetaminophen 650 q.4 p.r.n. 2. Amlodipine 2.5 mg daily. 3. Eliquis 5 mg p.o. b.i.d. 4. Atorvastatin 20 mg tablet at bedtime. 5. Carvedilol 3.125 mg p.o. b.i.d. 6. Multaq 400 mg p.o. b.i.d. 7. Levothyroxine 125 mcg tablet daily. PAST MEDICAL HISTORY: 1. History of atrial fibrillation. 2. Chronic renal failure. 3. Type 2 diabetes mellitus. 4. COPD. 5. Hypothyroidism. 6. Status post CHF. PAST SURGICAL HISTORY: Recently status post transesophageal echo, status post left knee replacement. SOCIAL HISTORY: The patient is , lives in [place], [place]. She lives with her mother. She has four children. No smoking. No alcohol. No IV drug abuse. Sedentary lifestyle. ALLERGIES: UNKNOWN. TRAUMA: None. IMMUNIZATION: Up-to-date. HOSPITALIZATIONS: Please see past medical history. FAMILY HISTORY: No family history of ESRD. PHYSICAL EXAMINATION: VITAL SIGNS: Blood pressure is 124/67, heart rate 56, temperature 97.7, O2 saturation 97%, respiratory rate 20. GENERAL: She is noted to be awake, alert, comfortable, not in overt distress. SKIN: Adequate turgor. HEENT: Pinkish conjunctivae. Anicteric sclerae. NECK: No neck mass. No carotid bruits. No JVD. CHEST: No deformities. LUNGS: Decreased breath sounds. HEART: Irregularly irregular. ABDOMEN: Globular, soft, nontender. No masses. EXTREMITIES: No edema. No deformities. NEUROLOGIC: Awake and oriented to 3 spheres. Moving all extremities. No tremors. No asterixis. No ataxia. LABORATORY DATA: Laboratories of June 12, 2020; white count 11.8, hemoglobin 12.3. Sodium 141, potassium 3.4, chloride 104, carbon dioxide 23, BUN 37, creatinine 1.96, glucose 141, calcium is 9.1. Urinalysis of April 27, 2014 showed no protein at that time. Chest x-ray of June 10, 2020, no CHF. June 12, 2020, renal ultrasound was unremarkable. Repeat urinalysis of June 12, 2020, pending. ASSESSMENT AND PLAN: 1. Acute kidney injury-I suspect this is hemodynamically-mediated renal dysfunction on top of her chronic renal failure. Please note, she was on an BASILIA inhibitor and was recently started on diuretics. Currently, lisinopril and diuretics are on hold. I will probably continue to observe her without any dialytic intervention. Agree to temporarily hold off the diuretics and BASILIA inhibitor. I do anticipate improvement eventually. 2. Chronic renal failure. This is secondary to underlying diabetic nephropathy by the patient. 3. Congestive heart failure/decreased EF-Cardiology is following. Her cardiac status is being optimized. She has been restarted on Multaq. The patient has also been restarted on her Eliquis. For the moment, agree with current management. Job ID: [id number]
[2020-06-12 12:07] VITALS: BP 118/61; TEMP 98.1
[2020-06-12 12:23] LABS: Bacteria/HPF 3+ HPF (None Seen); Bilirubin Negative (Negative); Blood, Urine Negative (Negative); Clarity Clear (Clear); Glucose, Urine (Dipstick) Normal (Negative); Ketone, Urine Negative (Negative); Leukocyte 250 Leu/uL (Negative); Nitrite 2+ (Negative); Protein, Urine (Dipstick) Negative (Neg-Trace); RBC/HPF 0-3 HPF (0-3); Specific Gravity, Urine 1.018 (1.002-1.036); Squamous Epithelial 0-3 HPF (0-3); Urobilinogen Normal mg/dL (Less than 2)
--- NOTE | 2020-06-12 12:45 | EKG ---
Test Reason : CHEST PAIN Blood Pressure : / mmHG Vent. Rate : 105 BPM Atrial Rate : 267 BPM P-R Int : 000 ms QRS Dur : 092 ms QT Int : 356 ms P-R-T Axes : 095 037 190 degrees QTc Int : 470 ms Poor data quality, interpretation may be adversely affected Atrial flutter with variable A-V block Abnormal ECG Confirmed by PATT WALSH ([id number]), sound editor LAURO NIELSON ([id number]) on 06/12/2020 12:44:40 PM Referred By: Confirmed By:PATT WALSH
--- NOTE | 2020-06-12 18:50 | DIS ---
DATE OF ADMISSION: 06/11/2020 DATE OF DISCHARGE: 06/12/2020 PRIMARY CARE: Nurse practitioner, Shayy Thomson. CONSULTANTS: Dr. Sy and Dr. Luis of Cardiology and Dr. Arroyo of Nephrology. MEDICATIONS: Reconciled at discharge. New medications; 1. Ventolin nebulizer solution to use every 4 hours as needed. 2. ProAir two puffs every 4 hours as needed. 3. Amlodipine 2.5 mg daily. 4. Eliquis 5 mg p.o. b.i.d. 5. Lipitor 20 mg at bedtime. 6. Carvedilol 3.125 mg b.i.d. with meals. 7. Multaq 400 mg b.i.d. with meals. 8. Levothyroxine 125 mcg daily. Medications discontinued; 1. Lisinopril due to acute kidney injury in the context of chronic kidney disease. 2. Amiodarone as this was changed over to Multaq. All medications that are new or if the patient was on them before are refilled for 30 days. All further refills from the primary care provider or the learning and development administrator. FINAL DIAGNOSES: 1. Atrial fibrillation with rapid ventricular response, status post cardioversion. 2. Acute kidney injury in the context of chronic kidney disease versus progression of the chronic kidney disease. 3. Asthma with exacerbation, appears resolved. 4. Indeterminate troponin, likely secondary to atrial fibrillation. 5. Hypothyroidism, uncontrolled. 6. Pjlx-pa-zrfuaxar mitral regurgitation and mild tricuspid regurgitation. SECONDARY DIAGNOSES: 1. Hypertension. 2. Type 2 diabetes. HISTORY OF PRESENT ILLNESS: Ms. Ball is a 74-year-old female with the above medical problems, who presented to the emergency room with a complaint of shortness of breath. The patient had used albuterol nebulizer; however, only minimal improvement. She also noted that many of her medications had run out and she had been without them for approximately a month. She was found to be in atrial fibrillation with RVR and a rate in the 130s, received IV Cardizem and Hospitalist called for admission. HOSPITAL COURSE: The patient was maintained on the Cardizem drip, evaluated by Cardiology and underwent cardioversion. She tolerated this procedure well and has maintained a sinus rhythm since then. Her medications have been adjusted, she is encouraged to maintain full anticoagulation for secondary stroke risk reduction. On day of discharge, she did undergo echocardiogram, which shows an EF of 40% to 45%, consistent with the one that was performed in 2019. She will need followup with her learning and development administrator and refills of her medications. Acute kidney injury versus progression of chronic kidney disease. The patient on admission, her creatinine was 1.12, on the day of discharge, it is 1.96. The patient was evaluated today by Dr. Arroyo, who recommends outpatient followup and to have the patient off her home BASILIA inhibitor. The renal ultrasound was normal. Diabetes. The patient's blood sugars are well controlled. Hypothyroid. The patient was restarted on levothyroxine, she will need follow up check of her TSH in six weeks and adjustment of medication. Her TSH here was 19. The patient is overall improved, requesting to go home and she does meet criteria. She has been cleared by both Cardiology and Nephrology. PHYSICAL EXAMINATION: Please see the note on the chart. ACUTE FINDINGS AND TEST RESULTS: CBC today; 11.8, 12.3, 37.6, and 274. Of note, white blood cell count on 06/10 was 8.3. INR 0.9. Renal panel; 141, 3.4, 104, 23, 37, 1.96, and 141. Calcium 9.1. Troponin 0.037, 0.041, and 0.043. BNP was 209. TSH 19. LFTs on admission were normal. Urinalysis on admission; leukocyte esterase positive, 7 to 10 white blood cells, and 3+ bacteria. COVID test negative. Echocardiogram performed today, EF 40% to 45%, [id number] mitral regurg, mild tricuspid regurg. Renal ultrasound performed today is negative for an acute process. Chest x-ray on 06/10 is no acute cardiopulmonary process. DIET: Heart healthy diabetes prudent. ACTIVITY: As tolerated. FOLLOWUP: Follow up is with nurse practitionerAlix within a week to review this hospitalization and recheck TSH in [address] Arroyo. Please call Dr. Arroyo's office within a week to schedule an appointment for followup monitoring of her kidney function. Follow up with Dr. Sy or the patient's learning and development administrator in 2 to 3 weeks. CODE STATUS: Full. DISCHARGE DISPOSITION: Home. Reviewed with patient this hospitalization, the importance of followup, the importance of taking her medication, and the seek care precautions. She demonstrates understanding. Total time coordinating discharge is 35 minutes. Job ID: [id number] MTDD
--- NOTE | 2020-06-17 15:54 | CCLSPC ---
PROCEDURE: Cardioversion. INDICATION: Persistent atrial fibrillation, symptomatic. Ms. Ball is a 74-year-old woman with persistent atrial fibrillation, highly symptomatic. The patient was brought to recovery area. She was given 200 joules direct current energy, synchronized and converted to sinus rhythm. CONCLUSION: Successful cardioversion. Job ID: [id number]
== END 2020-06-12 16:26 | disposition home or self-care (01) | DRG 309 ==
LOC: ERS 06:28 → ERHOLD 06:59 → 2SE 07:45 → OBSVTOIN 06-11 14:35
PROVIDERS: ADMIT Internal Medicine; ATTEND Family Medicine
PROC: B24BZZ4 Ultrasonography of Heart with Aorta, Transesophageal (ICD-10-PCS; principal; 2020-06-11)
PROC: 5A2204Z Restoration of Cardiac Rhythm, Single (ICD-10-PCS; 2020-06-11)
DX: I48.91 Unspecified atrial fibrillation (principal); J45.901 Unspecified asthma with (acute) exacerbation; I13.0 Hypertensive heart and chronic kidney disease with heart failure and stage 1 through stage 4 chronic kidney disease, or unspecified chronic kidney disease; I50.32 Chronic diastolic (congestive) heart failure; N17.9 Acute kidney failure, unspecified; I42.9 Cardiomyopathy, unspecified; K21.9 Gastro-esophageal reflux disease without esophagitis; Z96.652 Presence of left artificial knee joint; E11.22 Type 2 diabetes mellitus with diabetic chronic kidney disease; N18.9 Chronic kidney disease, unspecified; R77.8 Other specified abnormalities of plasma proteins; I07.1 Rheumatic tricuspid insufficiency; E03.9 Hypothyroidism, unspecified; I34.0 Nonrheumatic mitral (valve) insufficiency; Z20.828 Contact with and (suspected) exposure to other viral communicable diseases; E11.21 Type 2 diabetes mellitus with diabetic nephropathy; Z91.14 Patient's other noncompliance with medication regimen; Z88.2 Allergy status to sulfonamides; Z88.6 Allergy status to analgesic agent; Z79.51 Long term (current) use of inhaled steroids; Z79.4 Long term (current) use of insulin; Z79.899 Other long term (current) drug therapy; Z79.01 Long term (current) use of anticoagulants; Z79.890 Hormone replacement therapy
CPT/HCPCS: 36415; 36416; 71045; 76770; 80048; 80053; 81001; 82553; 83036; 83880; 84443; 84484; 85025; 85610; 85730; 87635; 93005; 93306; 93312; 94640; 94664; 96374; 96375; 96376; G0378; J1940; J2704; J7512; J7611; Q0163; U0003